=== PATIENT | female | born 1985 ===

== ENCOUNTER 2018-09-19 08:29 | Outpatient (CLI) | payer OTHER ==
[~2018-09-19] VITALS: Ht 167.6 cm; Wt 91.2 kg
[2018-09-19] MEDS ORDERED: FLONASE16 GM NASAL (11:31)
[2018-09-19] MEDS ORDERED: ZYRTEC10 MG PO (11:32)
[2018-09-19] MEDS ORDERED: DERMOTIC20 ML OTIC (11:32)
== END 2018-09-19 08:45 | disposition home or self-care (01) ==
LOC: OFIC 805 08:29
DX: R05 Cough (principal); J31.0 Chronic rhinitis; J34.2 Deviated nasal septum; J34.3 Hypertrophy of nasal turbinates; H93.8X2 Other specified disorders of left ear

== ENCOUNTER 2018-11-21 10:16 | Outpatient (CLI) | payer OTHER ==
[~2018-11-21] VITALS: Ht 152.4 cm; Wt 90.7 kg
[~2018-11-21 10:16] MED LIST: DERMOTIC20 ML OTIC; FLONASE16 GM NASAL; ZYRTEC10 MG PO
[2018-11-21] MEDS ORDERED: ZYRTEC10 MG PO (13:27)
[2018-11-21] MEDS ORDERED: FLONASE16 GM NASAL (13:27)
[2018-11-21] MEDS ORDERED: DERMOTIC20 ML OTIC (13:27)
== END 2018-11-21 10:30 | disposition home or self-care (01) ==
LOC: OFIC 805 10:16
DX: R05 Cough (principal); J31.0 Chronic rhinitis; J34.2 Deviated nasal septum; J34.3 Hypertrophy of nasal turbinates; L29.9 Pruritus, unspecified